=== PATIENT | female | born 1940 | race Caucasian/White ===

== ENCOUNTER → 2017-02-15 | Outpatient (CLI) | payer SELFPAY ==
--- NOTE | 2017-02-15 09:43 | REP ---
LEFT HAND: Four views of the left hand performed. There is no acute fracture or dislocation. There is mild narrowing and sclerosis at the radiocarpal joint. There is mild narrowing at the between the scaphoid and trapezium as well as between the trapezium and base of first metacarpal. There is mild narrowing at the first metacarpal phalangeal joint with mild subchondral sclerosis. IMPRESSION: Degenerative changes. No acute fracture or dislocation. Signed by Alphonso Souza MD 02/15/2017 12:38 P
== END ==
LOC: M WUC 08:19
PROVIDERS: ATTEND Physician Assistant
DX: M19.042 Primary osteoarthritis, left hand (principal); M79.645 Pain in left finger(s)